=== PATIENT | female | born 1975 | race Caucasian/White ===

== ENCOUNTER 2017-04-24 15:59 | Emergency (ER) | payer OTHER ==
[~2017-04-24] VITALS: Ht 162.6 cm; Wt 68.5 kg
[2017-04-24] MEDS ORDERED: BENTYL 20 MG TA20 M1 PO (16:21)
[2017-04-24] MEDS ORDERED: NOVOLOG100 UNIT/1 SUBQ (16:21)
[2017-04-24] MEDS ORDERED: LANTUS100 UNIT/M SUBQ (16:21)
[2017-04-24] MEDS ORDERED: METFORMIN HCL500 MG PO (16:21)
[2017-04-24] MEDS ORDERED: HUMIRA20 MG/0.4 SQ (16:22)
[2017-04-24] MEDS ORDERED: LEVOTHYROXIN0.175 MG PO (16:22)
[2017-04-24 16:23] VITALS: BP 137/59
[2017-04-24 17:28] LABS: HEMATOCRIT 34.2 % (37.0-47.0); HEMOGLOBIN 11.1 gm/dL (12.0-15.0); MCH 26.2 pg (26.0-34.0); MCHC 32.4 g/dL (28.0-37.0); MCV 80.9 fL (80.0-100.0); PLATELET COUNT 236 thou/uL (150-400); RBC 4.23 mil/uL (4.20-5.00); RDW 23.2 % (10.5-14.5); WBC 6.1 thou/uL (4.0-11.0)
[2017-04-24 17:29] LABS: MANUAL DIFF YES
[2017-04-24 17:41] LABS: URINE BILIRUBIN NEGATIVE (Negative); URINE BLOOD NEGATIVE (Negative); URINE COLOR YELLOW; URINE GLUCOSE-RANDOM* NEGATIVE (Negative); URINE KETONES NEGATIVE (Negative); URINE LEUKOCYTES-REFLEX TRACE (Negative); URINE PROTEIN (DIPSTICK) NEGATIVE (Negative); URINE SPECIFIC GRAVITY <= 1.005 (1.003-1.035); URINE UROBILINOGEN 0.2 E.U./dl (0.2-1.0)
[2017-04-24 17:46] LABS: ALBUMIN 3.7 g/dL (3.4-5.0); CALCIUM 10.3 mg/dL (8.5-10.1); CREATININE 0.8 mg/dL (0.6-1.0); TOTAL BILIRUBIN 0.4 mg/dL (<0.1-1.0)
[2017-04-24 17:52] LABS: ABSOLUTE NEUTROPHILS 3.7 thou/uL (1.4-8.2); TOTAL CELL COUNT 100
[2017-04-24 17:53] LABS: ANISOCYTOSIS 2+; HYPOCHROMASIA 1+; POLYCHROMASIA OCCASIONAL
[2017-04-24 17:53] LABS: AMP/METHAMP Negative (Negative); BARBITURATES Negative (Negative); BENZODIAZEPINES Negative (Negative); COCAINE Negative (Negative); METHADONE Negative (Negative); OPIATES Negative (Negative); PCP Negative (Negative); THC Negative (Negative)
[2017-04-24 17:54] LABS: POTASSIUM 3.7 mmol/L (3.5-5.1)
== END 2017-04-24 17:48 ==
LOC: ER 15:59
PROVIDERS: Emergency Medicine
DX: R10.30 Lower abdominal pain, unspecified (principal); K62.5 Hemorrhage of anus and rectum; R11.2 Nausea with vomiting, unspecified; E11.9 Type 2 diabetes mellitus without complications; K50.90 Crohn's disease, unspecified, without complications; F17.210 Nicotine dependence, cigarettes, uncomplicated; Z88.6 Allergy status to analgesic agent; Z88.1 Allergy status to other antibiotic agents